=== PATIENT | male | born 1940 | race Two or more races ===

== ENCOUNTER 2022-03-01 09:26 | Emergency (ER) | payer OTHER, MEDICAID ==
[~2022-03-01] VITALS: Ht 170.2 cm; Wt 101.1 kg
[2022-03-01] MEDS ORDERED: cefTRIAXone SOD 1,000 MG VL IM ONE (15:00)
[2022-03-01 20:44] VITALS: BP 153/99
== END 2022-03-01 20:44 | disposition home or self-care (01) ==
LOC: ER 09:26
DX: R33.9 Retention of urine, unspecified (principal)
CPT/HCPCS: 51702; 96372; 99284; J0696